=== PATIENT | female | born 1960 | race Caucasian/White ===

== ENCOUNTER → 2021-02-16 | Emergency (ER) | payer OTHER ==
[~2021-02-16] VITALS: Ht 160 cm; Wt 93.0 kg
[~2021-02-16] MED LIST: CLONAZEPAM0.125 MG PO; DUTOPROL 100-11 EACH; FORTAMET1000 MG PO; HUMALOG MI100 UNIT/2 SQ; HUMALOG100 UNIT/1; HYDROXYZIN10 MG/5 ML PO; METFORMIN HCL500 M3 PO; PROTONIX20 MG PO; XARELTO10 MG PO; ZESTRIL2.5 MG PO
== END | disposition home or self-care (01) ==
LOC: ER 21:32
DX: M94.0 Chondrocostal junction syndrome [Tietze] (principal); R07.89 Other chest pain